=== PATIENT | female | born 2000 | race Caucasian/White ===

== ENCOUNTER 2021-08-21 14:41 | Observation (INO) | payer BC, MEDICAID ==
[~2021-08-21] VITALS: Ht 160 cm; Wt 80.3 kg
[2021-08-21 14:43] VITALS: BP 123/89
[2021-08-21 15:25] LABS: APPEARANCE,URINE SL CLOUDY (CLEAR); BILIRUBIN,URINE NEGATIVE (NEGATIVE); COLOR,URINE YELLOW (YELLOW); GLUCOSE, URINE (UA) NEGATIVE (NEGATIVE); KETONES,URINE NEGATIVE (NEGATIVE); LEUKOCYTE ESTERASE ,URINE SMALL (NEGATIVE); NITRATE,URINE NEGATIVE (NEGATIVE); OCCULT BLOOD,URINE NEGATIVE (NEGATIVE); PROTEIN,URINE NEGATIVE (NEGATIVE); UROBILINOGEN,URINE 0.2 mg/dL (0.2-1.0)
[2021-08-21 15:54] LABS: BACTERIA,URINE Rare /HPF (None Seen); RBC,URINE 0-1 /HPF (0-1); SQUAMOUS EPITHELIAL CELL,UR Rare /HPF (0-2)
[2021-08-25] MEDS ORDERED: PREN1TAB80 PO (20:47)
[2021-08-26] MEDS ORDERED: CEPH250C2 PO (10:13)
[2021-08-26] MEDS ORDERED: CEPH500B PO (10:17)
== END 2021-08-21 16:03 | disposition home or self-care (01) ==
LOC: EDH 14:41 → LDH 14:42
PROVIDERS: ADMIT Specialist; ATTEND Specialist
DX: O42.92 Full-term premature rupture of membranes, unspecified as to length of time between rupture and onset of labor (principal); Z3A.38 38 weeks gestation of pregnancy
CPT/HCPCS: 59025; 76819 ×2; 81001; G0378; G0379